=== PATIENT | female | born 1960 | race Caucasian/White ===

== ENCOUNTER → 2018-04-27 | Outpatient (REF) ==
[2018-04-27 09:32] LABS: PLATELET COUNT, AUTOMATED 344 K/uL (150-450)
== END ==
DX: Z02.9 Encounter for administrative examinations, unspecified (principal)
CPT/HCPCS: 82040; 82247; 82310; 82374; 82435; 82465; 82565; 82947; 83718; 84075; 84132; 84155; 84295; 84443; 84450; 84460; 84478; 84520; 85025